=== PATIENT | female | born 1985 | race American Indian/Alaskan Native ===

== ENCOUNTER 2020-08-04 14:17 | Emergency (ER) | payer SELFPAY ==
[2020-08-04 14:27] VITALS: BP 157/99
--- NOTE | 2020-08-04 14:34 | Emergency Department Report ---
Vomiting/Diarrhea - HPI Chief Complaint: Nausea/Vomiting/Diarrhea Stated Complaint: VOMITING Time Seen by Provider: 08/04/20 14:28 Duration: 2 Days Severity: mild Nausea/Vomiting Severity: Mild Diarrhea Severity: None Pain Location: Generalized Symptoms: Yes Watery Diarrhea, No Bloody diarrhea, No Fever, No Able to Tolerate Fluids, No Recent Unusual Foods, No Recent Untreated Water, No Recent use of Antibiotics, No Family w/ Similar Symptoms, No Rash, No Hematuria, No Recent URI Symptoms Other History: 35-year-old -Turk[place] male presents to the emergency room for nausea vomiting and headache. Patient states he has a history of GERD but does not take anything for it. Patient also reports he has a headache and has not taken anything for that. Patient comes in drinking drinking grapefruit juice. Patient also states that he smokes weed which she states that helps his nausea. Patient followed by the [facility]. Last had a virtual medicine appointment was July 06, 2020. ED Review of Systems ROS: Stated complaint: VOMITING Other details as noted in HPI Comment: All other systems reviewed and negative ED Past Medical Hx - Past Medical History Additional medical history: GERD Vomiting Diarrhea Exam - Exam General: Vital signs noted. No distress. Alert and acting appropriately. HEENT: Yes Moist Mucous Membranes, No Pharyngeal Erythema, No Pharyngeal Exudates, No Rhinorrhea, No Conjuctival Injection, No Frontal Tenderness, No Maxillary Tenderness Neck: No Adenopathy, No Rigidity Lungs: Yes Clear Lung Sounds, Yes Good Air Exchange, No Wheezes, No Stridor, No Cough, No Nasal Flaring, No Retractions, No Use of Accessory Muscles Heart exam: Regular: Yes, Murmur: No, Tachycardia: No Abdomen: Tenderness: No, Peritoneal Signs: No, Distention: No, Hyperactive Bowel sounds: No Skin exam: Rash: No, Edema: No, Normal turgor: Yes Neurologic: Alert and oriented, no deficits. Musculoskeletal: Unremarkable. ED Course Vital Signs 08/04/20 14:27 Temperature 98.8 F Pulse Rate 79 Respiratory 20 Rate Blood Pressure 157/99 O2 Sat by Pulse 91 Oximetry Critical care attestation.: If time is entered above; I have spent that time in minutes in the direct care of this critically ill patient, excluding procedure time. ED Disposition Clinical Impression: Nausea and vomiting, Headache, Cannabis hyperemesis syndrome concurrent with and due to cannabis abuse Disposition: - TO HOME OR SELFCARE Is pt being admited?: No Does the pt Need Aspirin: No Condition: Stable Instructions: Nausea, Adult, [id number] Additional Instructions: Take Tylenol ibuprofen. Follow-up with the [facility]. Referrals: [facility] [Outside] - 3-5 Days Forms: Work/School Release Form(ED)
== END 2020-08-04 14:41 | disposition home or self-care (01) ==
LOC: ED 14:17
DX: R11.2 Nausea with vomiting, unspecified (principal)
CPT/HCPCS: 99281